=== PATIENT | female | born 1985 | race Caucasian/White ===

== ENCOUNTER 2022-07-19 04:30 | Emergency (ER) | payer OTHER ==
[~2022-07-19] VITALS: Ht 177.8 cm; Wt 99.8 kg
[2022-07-19 04:30] VITALS: BP 150/76
--- NOTE | 2022-07-19 04:30 | NUR ---
TO [facility] AMBUL[facility] .
--- NOTE | 2022-07-19 04:45 | NUR ---
SEEN AND EXAMINED BY NEREIDA
[2022-07-19 04:49] VITALS: BP 150/76
--- NOTE | 2022-07-19 04:49 | NUR ---
PATIENT [facility] POLICE DEPT. PATIENT EXAMINED BY DR. WOODRUFF. PATIENT MEDICALLY CLEARED AND RELEASED IN CUSTODY IN STABLE CONDITION. ORIGINAL PRE-BOOK FORM GIVEN TO OFFICER BERTRAND.
== END 2022-07-19 04:49 ==
LOC: MED 04:30
DX: Z02.89 Encounter for other administrative examinations (principal); V49.88XA Car occupant (driver) (passenger) injured in other specified transport accidents, initial encounter; Y93.89 Activity, other specified; Y92.89 Other specified places as the place of occurrence of the external cause; Y99.8 Other external cause status
CPT/HCPCS: 99283